=== PATIENT | female | born 1930 | race Caucasian/White ===

== ENCOUNTER 2016-09-11 12:17 | Inpatient (IN) | payer MEDICARE ==
[~2016-09-11 12:17] MED LIST: ACETAMINOPHEN325 MG PO; ASPIRIN CHEWABL81 MG PO; CERTAGEN1 EACH PO; FEOSOL325 MG PO; LAXATIVE5 M1 PO; LISINOPRIL-HCT1 EACH PO; PRILOSEC20 MG PO; XARELTO10 MG PO
[2016-09-11 12:45] LABS: BILIRUBIN NEGATIVE (NEGATIVE); BLOOD TRACE-INTACT Ery/uL (NEGATIVE); CLARITY CLEAR (CLEAR); COLOR YELLOW (YELLOW); GLUCOSE (U) NORMAL (NORMAL); KETONE (U) NEGATIVE (NEGATIVE); LEUKOCYTES NEGATIVE Leu/uL (NEGATIVE); NITRITE NEGATIVE (NEGATIVE); PROTEIN TRACE (LOW) mg/dL (NEGATIVE); UROBILINOGEN 0.2 mg/dL (0.2-1.0)
[2016-09-11 13:52] LABS: URINARY WBC RARE
[2016-09-11 13:52] LABS: BASOPHIL 0.1 % (0-2); EOSINOPHIL 0 % (0-7); HCT 43.8 % (37.0-47.0); HGB 14.4 g/dl (12.5-16.0); LYMPHOCYTE 5.9 % (15-48); MCH 29.3 pg (25.0-31.0); MCHC 32.9 g/dL (32.0-36.0); MCV 89.2 fL (78.0-100.0); MONOCYTE 10.4 % (0-12); MPV 11.7 fL (6.0-9.5); NEUTROPHIL 83.6 % (41-80); PLT 143 K/uL (150-400); RBC 4.91 M/uL (4.20-5.40); RDW 15.9 % (11.5-14.0); WBC 12.7 K/uL (4.0-10.5)
[2016-09-11 14:07] LABS: LACTIC ACID 1.6 mmol/L (0.5-2.2)
[2016-09-11 14:08] LABS: ALBUMIN 3.6 g/dL (3.4-4.8); BILIRUBIN - TOTAL 1.3 mg/dL (0.1-1.0); GLOBULIN (CALCULATION) 2.7 g/dL (2.2-4.2); POTASSIUM 4.5 mmol/L (3.5-5.1); TOTAL PROTEIN 6.3 g/dL (6.4-8.3)
[2016-09-12 04:52] LABS: BASOPHIL 0 % (0-2); EOSINOPHIL 0 % (0-7); HCT 34.5 % (37.0-47.0); HGB 11.3 g/dl (12.5-16.0); LYMPHOCYTE 8.4 % (15-48); MCH 29.7 pg (25.0-31.0); MCHC 32.8 g/dL (32.0-36.0); MCV 90.6 fL (78.0-100.0); MPV 11.4 fL (6.0-9.5); NEUTROPHIL 81.6 % (41-80); PLT 115 K/uL (150-400); RBC 3.81 M/uL (4.20-5.40); RDW 15.8 % (11.5-14.0); WBC 8.8 K/uL (4.0-10.5)
[2016-09-12 05:01] LABS: INR 1.37 (0.9-1.2); PROTHROMBIN TIME 16.4 SECONDS (11.7-14.0); PTT 38.1 SECONDS (23.2-31.4)
[2016-09-12 05:20] LABS: ALBUMIN 2.9 g/dL (3.4-4.8); BILIRUBIN - TOTAL 0.6 mg/dL (0.1-1.0); CREATININE 0.9 mg/dL (0.5-1.0); GLOBULIN (CALCULATION) 1.9 g/dL (2.2-4.2); MAGNESIUM 1.92 mg/dL (1.40-2.10); PHOSPHORUS 3.1 mg/dL (2.7-4.5); POTASSIUM 3.5 mmol/L (3.5-5.1); TOTAL PROTEIN 4.8 g/dL (6.4-8.3)
[2016-09-13 04:34] LABS: MCH 29.3 pg (25.0-31.0); MCHC 32.4 g/dL (32.0-36.0); MCV 90.7 fL (78.0-100.0); MPV 11.6 fL (6.0-9.5); RBC 3.75 M/uL (4.20-5.40); RDW 15.7 % (11.5-14.0); WBC 7.3 K/uL (4.0-10.5)
[2016-09-13 05:04] LABS: CREATININE 0.8 mg/dL (0.5-1.0); POTASSIUM 3.6 mmol/L (3.5-5.1)
[2016-09-13 11:55] LABS: IRON 29 ug/dL (44-196); IRON % SATURATION 15 %SAT (20-50); TIBC (TOTAL IRON + UIBC) 196 U/L (228-428); UIBC 167 ug/dL (112-346)
[2016-09-13 12:12] LABS: FOLIC ACID (SERUM) 10.3 ng/mL (5.6-45.8)
[2016-09-14 04:38] LABS: HCT 36.8 % (37.0-47.0); HGB 11.8 g/dl (12.5-16.0); MCH 28.9 pg (25.0-31.0); MCHC 32.1 g/dL (32.0-36.0); MCV 90.2 fL (78.0-100.0); MPV 11.7 fL (6.0-9.5); RBC 4.08 M/uL (4.20-5.40); RDW 15.8 % (11.5-14.0); WBC 6.6 K/uL (4.0-10.5)
[2016-09-14 04:59] LABS: CREATININE 0.8 mg/dL (0.5-1.0); POTASSIUM 3.3 mmol/L (3.5-5.1)
[2016-09-14 16:20] LABS: TROPONIN T < 0.010 ng/mL
[2016-09-14 16:22] LABS: PRO-BNP 2567 pg/mL (0-450)
[2016-09-15 09:55] LABS: HCT 39.9 % (37.0-47.0); MCH 29.2 pg (25.0-31.0); MCHC 32.6 g/dL (32.0-36.0); MCV 89.7 fL (78.0-100.0); MPV 10.9 fL (6.0-9.5); RBC 4.45 M/uL (4.20-5.40); RDW 15.9 % (11.5-14.0)
[2016-09-15 10:14] LABS: CREATININE 0.9 mg/dL (0.5-1.0); POTASSIUM 3.6 mmol/L (3.5-5.1)
[2016-09-16 06:15] LABS: HCT 37.5 % (37.0-47.0); HGB 12.3 g/dl (12.5-16.0); MCH 29.1 pg (25.0-31.0); MCHC 32.8 g/dL (32.0-36.0); MCV 88.9 fL (78.0-100.0); MPV 11.2 fL (6.0-9.5); RBC 4.22 M/uL (4.20-5.40); RDW 15.6 % (11.5-14.0); WBC 6.6 K/uL (4.0-10.5)
[2016-09-16 06:32] LABS: CREATININE 0.9 mg/dL (0.5-1.0); POTASSIUM 3.7 mmol/L (3.5-5.1)
[2016-09-17 04:05] LABS: HCT 37.9 % (37.0-47.0); HGB 12.6 g/dl (12.5-16.0); MCH 29.4 pg (25.0-31.0); MCHC 33.2 g/dL (32.0-36.0); MCV 88.6 fL (78.0-100.0); MPV 10.8 fL (6.0-9.5); RBC 4.28 M/uL (4.20-5.40); RDW 15.8 % (11.5-14.0); WBC 10.5 K/uL (4.0-10.5)
[2016-09-17 04:22] LABS: POTASSIUM 3.8 mmol/L (3.5-5.1)
[2016-09-17 14:39] LABS: BILIRUBIN NEGATIVE (NEGATIVE); BLOOD 2+ Ery/uL (NEGATIVE); CLARITY CLEAR (CLEAR); COLOR YELLOW (YELLOW); GLUCOSE (U) NORMAL (NORMAL); KETONE (U) TRACE mg/dL (NEGATIVE); LEUKOCYTES NEGATIVE Leu/uL (NEGATIVE); NITRITE NEGATIVE (NEGATIVE); PROTEIN 1+ mg/dL (NEGATIVE); SPECIFIC GRAVITY >=1.030 (1.001-1.030); UROBILINOGEN 0.2 mg/dL (0.2-1.0); pH 5.5 (5.0-9.0)
[2016-09-17 14:41] LABS: URINARY WBC RARE
[2016-09-17 14:42] LABS: BACTERIA 1+; MUCOUS TRACE
[2016-09-18 04:55] LABS: HCT 31.5 % (37.0-47.0); HGB 10.3 g/dl (12.5-16.0); MCH 29.3 pg (25.0-31.0); MCHC 32.7 g/dL (32.0-36.0); MCV 89.5 fL (78.0-100.0); MPV 11.1 fL (6.0-9.5); RBC 3.52 M/uL (4.20-5.40); RDW 15.6 % (11.5-14.0); WBC 6.5 K/uL (4.0-10.5)
[2016-09-18 05:16] LABS: CREATININE 1.2 mg/dL (0.5-1.0); POTASSIUM 3.8 mmol/L (3.5-5.1)
[2016-09-19 07:40] LABS: HCT 30.4 % (37.0-47.0); HGB 9.9 g/dl (12.5-16.0); MCH 29.3 pg (25.0-31.0); MCHC 32.6 g/dL (32.0-36.0); MCV 89.9 fL (78.0-100.0); MPV 11.1 fL (6.0-9.5); RBC 3.38 M/uL (4.20-5.40); RDW 15.7 % (11.5-14.0); WBC 7.6 K/uL (4.0-10.5)
[2016-09-19 08:21] LABS: CREATININE 0.9 mg/dL (0.5-1.0); POTASSIUM 3.3 mmol/L (3.5-5.1)
[2016-09-20 05:10] LABS: CREATININE 0.8 mg/dL (0.5-1.0); MAGNESIUM 2.07 mg/dL (1.40-2.10); POTASSIUM 3.7 mmol/L (3.5-5.1)
[2016-09-21 04:26] LABS: HCT 34.8 % (37.0-47.0); HGB 10.9 g/dl (12.5-16.0); MCH 28.6 pg (25.0-31.0); MCHC 31.3 g/dL (32.0-36.0); MCV 91.3 fL (78.0-100.0); MPV 10.8 fL (6.0-9.5); RBC 3.81 M/uL (4.20-5.40); RDW 15.9 % (11.5-14.0); WBC 5.8 K/uL (4.0-10.5)
== END 2016-09-21 14:36 | DRG 871 ==
LOC: FER 12:17 → FMS 18:25
PROVIDERS: Internal Medicine; Internal Medicine Adolescent Medicine; Internal Medicine Cardiovascular Disease; ADMIT Internal Medicine
DX: A41.9 Sepsis, unspecified organism (principal); E43 Unspecified severe protein-calorie malnutrition; J18.9 Pneumonia, unspecified organism; L89.151 Pressure ulcer of sacral region, stage 1; L03.115 Cellulitis of right lower limb; E86.0 Dehydration; Z87.891 Personal history of nicotine dependence; Z66 Do not resuscitate; E87.6 Hypokalemia; Z79.82 Long term (current) use of aspirin; R00.0 Tachycardia, unspecified; G47.00 Insomnia, unspecified; R41.82 Altered mental status, unspecified; Y95 Nosocomial condition
CPT/HCPCS: 36415; 70450; 71010; 71020; 71250; 71275; 73590; 80048; 80053; 80202; 81001; 82553; 82607; 82728; 82746; 83540; 83550; 83605; 83735; 83880; 84100; 84484; 85025; 85379; 85610; 85651; 85730; 87040; 87088; 92507; 92526; 93005; 93971; 94010; 94640; 97110; 97116; 97162; 97166; 97530; 97530-GP; 97535; G0378; J0692; J1940; J1956; J2020; J3370; P9046; Q9967

== ENCOUNTER 2016-09-21 14:36 | Inpatient (IN) | payer MEDICARE ==
[2016-09-21 23:18] LABS: BILIRUBIN NEGATIVE (NEGATIVE); BLOOD 1+ Ery/uL (NEGATIVE); CLARITY CLEAR (CLEAR); COLOR YELLOW (YELLOW); GLUCOSE (U) NORMAL (NORMAL); KETONE (U) NEGATIVE (NEGATIVE); LEUKOCYTES NEGATIVE Leu/uL (NEGATIVE); NITRITE NEGATIVE (NEGATIVE); PROTEIN TRACE (LOW) mg/dL (NEGATIVE); SPECIFIC GRAVITY 1.015 (1.001-1.030); UROBILINOGEN 0.2 mg/dL (0.2-1.0)
[2016-09-21 23:29] LABS: BACTERIA TRACE
--- NOTE | 2016-09-22 02:48 | NUR ---
DR DEE NOTIFIED OF URINE RETENTION, SCAN 550 CC ABD ABDOMEN DISTENDED FIRM 09/21/16 2300 14 FR GUTIERRES CATH INSERTED PER STERILE TECHNIQUE WITHOUT DIFFICULTY DUE TO URINE RETENTION, (BLADDER SCAN 550 CC POST VOID) IMMEDIATE RETURN OF CLOUDY YELLOW URINE. SPECIMEN TO LAB PER PROTOCOL. ANCHORED TO LEG.
[2016-09-22 16:23] LABS: ALBUMIN 3.3 g/dL (3.4-4.8); BILIRUBIN - TOTAL 0.6 mg/dL (0.1-1.0); CREATININE 0.9 mg/dL (0.5-1.0); GLOBULIN (CALCULATION) 1.6 g/dL (2.2-4.2); POTASSIUM 3.2 mmol/L (3.5-5.1); TOTAL PROTEIN 4.9 g/dL (6.4-8.3)
--- NOTE | 2016-09-23 09:38 | NUR ---
PATIENT'S IS A PATIENT ON MED/SURG. SPOKE WITH HIS NURSE AND GOT IT ARRANGED FOR A VISIT. PT'S IN HER ROOM FOR APPROXIMATELY 1 HOUR. PT WAS VERY GRATEFUL.
--- NOTE | 2016-09-23 12:44 | NUR ---
WALKED INTO PT'S ROOM AND HER BREATHING IS SHALLOW . LOUD STIMULI WAS NEEDED TO WAKE HER. SHE DENIES PAIN. SHE DENIES SOA. "I'M SO TIRED" VSS. HER O2 HAD BEEN TURNED TO 4L AND IS ONLY SUPPOSED TO BE ON 2L NC. TURNED BACK TO 2L. DR. David NOTIFIED. 130/85, 81, 20, 98.4, 98% 2L.
--- NOTE | 2016-09-23 13:27 | NUR ---
DR. David TO ROOM AT 1310. PT'S BROUGHT UP FROM MED/SURG. FRIEND OF FAMILY ALREADY IN ROOM. SON WAS CALLED AND HE WAS ALREADY ON HIS TO HOSPITAL. PT'S BREATHING STILL SHALLOW WITH MOUTH OPEN. NO MOTTLING NOTED. PT HAD TO HAVE STERNAL RUB AND LOUD STIMULI TO WAKE HER. DENIES PAIN WHEN ASKED. VSS.
--- NOTE | 2016-09-27 07:41 | NUR ---
PT URINE OUTPUT THIS SHIFT 30ML. INFORMATION RELAYED TO HOSPITALIST PER TIGER TEXT, PT WITH LOW URINE OUTPUT. NO RESPONSE. SECOND TEXT PLEASE CALL SKILLED - NO RESPONSE. THIS OCCURRED APPROXIMATELY 05:45AM -06:15AM.
--- NOTE | 2016-09-27 14:30 | NUR ---
NOTED AT 1140 THAT RES'D HAD URINE IN TOILET AND NONE IN FC BAG,, BLADDER SCANNED AND HAD 580CC, CALLED BERNARDO GARVIN RN/ACNP WILL DC FC AND REANCHOR IN 6 HOURS IF DOES NOT VOID, 1315 VOIDED 300CC WITH BM AND BRIEF WAS WET ALSO
--- NOTE | 2016-09-27 18:47 | NUR ---
TOTAL OF 650CC OUT TODAY BLADDER SCAN AFTER LAST VOIDING AT 6PM, SCANNED WITH 217CC IN BLADDER
--- NOTE | 2016-09-30 10:32 | NUR ---
FIRST AID TEACHER SPOKE WITH PATIENT AND PATIENT GRANDDAUGHTER DISCUSSED PLAN AT DISCHARGE. AGREED TO HAVE [facility] COME ASSESS ON TUESDAY 10/03 FOR RETURN TO [facility] AND CORRECT UNIT PLACEMENT. CALLED AND LEFT VOICEMAIL WITH RYLIE BAEZA.
--- NOTE | 2016-10-04 14:40 | NUR ---
RYLIE WITH [facility] CALLED. SHE HAS DISCUSSED WITH PT AND FAMILY THAT MS. HOYT WILL GO TO THE PERSONAL CARE IN THE MEDICAL FACILITY. FAMILY IS IN AGREEMENT. DISCUSSED WITH MRS. HOYT. SHE UNDERSTANDS THAT HER WILL BE ABLE TO COME SHE HER. PT. TO D/C TO FACILITY ON 10/05/16. PT. HAS A ROLLING WALKER, WHEELCHAIR AND ROLLATOR. [facility] WILL PROVIDE PT/OT. D/C NOTICE AND QUESTIONNAIRE GIVEN.
--- NOTE | 2016-10-05 12:44 | NUR ---
86 YEAR OLD FEMALE DC TO [facility], A/O WITH CONFUSION JENNIFER AT NIGHT, CALLED REPORT TO [facility], AND FAXED ORDERS AND DC SUMMARY TO THEM, TRANSFERRING VIA CAR WITH SON
--- NOTE | 2016-10-05 13:35 | NUR ---
PT. D/C TO THE PERSONAL CARE AT THE MEDICAL FACILITY AT [facility]. SHE HAS A ROLLING WALKER, WHEELCHAIR AND ROLLATOR. [facility] TO PROVIDE PT/OT. D/C NOTICE AND QUESTIONNAIRE GIVEN.
== END 2016-10-05 14:03 | DRG 871 ==
LOC: FSNU 14:36
PROVIDERS: Internal Medicine; Nurse Practitioner Adult Health; ADMIT Internal Medicine
DX: A41.9 Sepsis, unspecified organism (principal); E43 Unspecified severe protein-calorie malnutrition; J18.9 Pneumonia, unspecified organism; L89.151 Pressure ulcer of sacral region, stage 1; L03.115 Cellulitis of right lower limb; E86.0 Dehydration; M25.551 Pain in right hip; Z87.891 Personal history of nicotine dependence; Z66 Do not resuscitate; E87.6 Hypokalemia; Z79.82 Long term (current) use of aspirin; R00.0 Tachycardia, unspecified; G47.00 Insomnia, unspecified; R41.82 Altered mental status, unspecified; Y95 Nosocomial condition; Z51.89 Encounter for other specified aftercare; I10 Essential (primary) hypertension
CPT/HCPCS: 36415; 80053; 81001; 87205; 87328; 87337; 87493; 92523; 92526; 97110; 97116; 97162; 97166; 97530; 97530-GP; 97535; J0692